=== PATIENT | male | born 1950 | race Caucasian/White ===

== ENCOUNTER 2019-01-07 07:06 | Day surgery (SDC) | payer OTHER ==
[~2019-01-07] VITALS: Ht 167.6 cm; Wt 81.6 kg
[2019-01-07 07:35] VITALS: BP 128/85
[2019-01-07 12:38] VITALS: BP 118/79
== END 2019-01-07 11:50 | disposition home or self-care (01) ==
LOC: GI 07:06 → OR 09:30 → GI 11:50
DX: Z12.11 Encounter for screening for malignant neoplasm of colon (principal); K63.5 Polyp of colon; K57.30 Diverticulosis of large intestine without perforation or abscess without bleeding; Z98.890 Other specified postprocedural states; Z79.82 Long term (current) use of aspirin; Z79.899 Other long term (current) drug therapy; Z86.010 Personal history of colon polyps
CPT/HCPCS: 45378; J1200; J1610; J2250; J2310; J3010; J3490

== ENCOUNTER 2020-04-05 11:13 | Inpatient (IN) | payer OTHER, SELFPAY ==
[~2020-04-05] VITALS: Ht 170.2 cm; Wt 86.2 kg
[2020-04-05 17:59] VITALS: Ht 170.2 cm; Wt 86.2 kg
[2020-04-05 19:55] LABS: BASOPHIL % 0.2 % (0.2-1.5); PLATELET COUNT 190 x10^3mcL (152-348)
[2020-04-05 19:57] LABS: rbc morphology (normal/abnorm) NORMAL (NORMAL)
[2020-04-05 20:15] LABS: CARBON DIOXIDE 25.7 mmol/L (21-32); CHLORIDE SERUM 100 mmol/L (98-107); CREATININE SERUM 1.1 mg/dL (0.7-1.3); GFR1 > 60 mL/min; GLUCOSE SERUM 106 mg/dL (74-106); POTASSIUM SERUM 4.3 mmol/L (3.5-5.1); SODIUM SERUM 134 mmol/L (136-145)
[2020-04-05 20:41] LABS: ALKALINE PHOSPHATASE 62 U/L (46-116); ALT/SGPT 70 U/L (16-63); AST/SGOT 80 U/L (15-37); BILIRUBIN TOTAL 0.6 mg/dL (0.20-1.00)
[2020-04-05 20:55] LABS: ALBUMIN 2.1 g/dL (3.4-5.0); TOTAL PROTEIN, SERUM 5.9 g/dL (6.4-8.2)
[2020-04-05 21:07] LABS: T3 TOTAL 0.81 ng/mL
[2020-04-05 21:10] LABS: C REACTIVE PROTEIN 27.3 mg/dL (<=0.9)
[2020-04-05 21:17] LABS: ERYTHROCYTE SED RATE 68 mm/hr (0-20)
[2020-04-05 23:04] LABS: FREE T4 1.25 ng/dL (0.76-1.46); FREE THYROXINE INDEX 2.8 ug/dL (1.4-4.5); T4(THYROXINE) 7.8 ug/dL (4.7-13.3)
[2020-04-05 23:10] LABS: CK-MB 0.9 ng/mL (0-3.6)
[2020-04-05 23:15] LABS: CHOLESTEROL/HDL RATIO 5.4
[2020-04-06 01:27] LABS: UA SPECIFIC GRAVITY 1.025 (1.005-1.035); microscopic required? YES; urine erythrocyte NEGATIVE (NEGATIVE)
[2020-04-06 08:39] LABS: BASOPHIL % 0.2 % (0.2-1.5); PLATELET COUNT 189 x10^3mcL (152-348); RED CELL DISTRIBUTION WIDTH 13.7 % (12.1-16.2)
[2020-04-06 09:23] LABS: CALCIUM 8.3 mg/dL (8.5-10.1); CARBON DIOXIDE 24.2 mmol/L (21-32); CHLORIDE SERUM 100 mmol/L (98-107); CREATININE SERUM 0.9 mg/dL (0.7-1.3); GFR1 > 60 mL/min; GLUCOSE SERUM 142 mg/dL (74-106); POTASSIUM SERUM 4.1 mmol/L (3.5-5.1); SODIUM SERUM 135 mmol/L (136-145)
[2020-04-06 10:30] LABS: rbc morphology (normal/abnorm) NORMAL (NORMAL)
[2020-04-06 13:34] VITALS: BP 152/77
[2020-04-06 16:27] VITALS: BP 126/80
[2020-04-06 20:55] VITALS: BP 124/84
[2020-04-07 06:27] VITALS: BP 127/88
[2020-04-07 08:17] LABS: BASOPHIL % 0.1 % (0.2-1.5); PLATELET COUNT 233 x10^3mcL (152-348); RED CELL DISTRIBUTION WIDTH 13.2 % (12.1-16.2)
[2020-04-07 08:44] LABS: CALCIUM 8.4 mg/dL (8.5-10.1); CARBON DIOXIDE 26.6 mmol/L (21-32); CHLORIDE SERUM 103 mmol/L (98-107); CREATININE SERUM 0.9 mg/dL (0.7-1.3); GFR1 > 60 mL/min; GLUCOSE SERUM 133 mg/dL (74-106); POTASSIUM SERUM 4.1 mmol/L (3.5-5.1); SODIUM SERUM 137 mmol/L (136-145)
[2020-04-07 09:27] VITALS: BP 114/80
[2020-04-07 12:59] VITALS: BP 142/85
[2020-04-07 16:39] VITALS: BP 134/79
[2020-04-07 21:19] VITALS: BP 121/80
[2020-04-08 06:27] VITALS: BP 131/60
[2020-04-08 08:19] LABS: BASOPHIL % 0.1 % (0.2-1.5); PLATELET COUNT 268 x10^3mcL (152-348); RED CELL DISTRIBUTION WIDTH 13.5 % (12.1-16.2)
[2020-04-08 08:29] LABS: CALCIUM 8.4 mg/dL (8.5-10.1); CARBON DIOXIDE 24.9 mmol/L (21-32); CHLORIDE SERUM 105 mmol/L (98-107); CREATININE SERUM 0.9 mg/dL (0.7-1.3); GFR1 > 60 mL/min; GLUCOSE SERUM 92 mg/dL (74-106); POTASSIUM SERUM 4.2 mmol/L (3.5-5.1); SODIUM SERUM 138 mmol/L (136-145)
[2020-04-08 08:35] VITALS: BP 129/81
[2020-04-08 08:39] LABS: BILIRUBIN DIRECT 0.16 mg/dL (0.0-0.2); BILIRUBIN TOTAL 0.49 mg/dL (0.20-1.00)
[2020-04-08 08:40] LABS: ALBUMIN 2.1 g/dL (3.4-5.0)
[2020-04-08 08:52] LABS: rbc morphology (normal/abnorm) NORMAL (NORMAL)
[2020-04-08 11:56] VITALS: BP 129/74
[2020-04-08 16:41] VITALS: BP 127/79
[2020-04-08 21:54] VITALS: BP 142/79
[2020-04-09 05:48] VITALS: BP 98/65
[2020-04-09 07:36] LABS: CALCIUM 8.7 mg/dL (8.5-10.1); CARBON DIOXIDE 27.2 mmol/L (21-32); CHLORIDE SERUM 100 mmol/L (98-107); CREATININE SERUM 1.1 mg/dL (0.7-1.3); GFR1 > 60 mL/min; GLUCOSE SERUM 82 mg/dL (74-106); POTASSIUM SERUM 3.8 mmol/L (3.5-5.1); SODIUM SERUM 136 mmol/L (136-145)
[2020-04-09 07:44] LABS: BASOPHIL % 0.2 % (0.2-1.5); PLATELET COUNT 259 x10^3mcL (152-348); RED CELL DISTRIBUTION WIDTH 13.6 % (12.1-16.2)
[2020-04-09 07:49] VITALS: BP 119/71
[2020-04-09 11:24] VITALS: BP 119/73
[2020-04-09 13:07] LABS: rbc morphology (normal/abnorm) NORMAL (NORMAL)
[2020-04-09 15:40] LABS: TOTAL PROTEIN, SERUM 6.8 g/dL (6.4-8.2)
[2020-04-09 15:41] LABS: ALBUMIN 2.6 g/dL (3.4-5.0); BILIRUBIN DIRECT 0.25 mg/dL (0.0-0.2); BILIRUBIN TOTAL 0.75 mg/dL (0.20-1.00)
[2020-04-09 15:55] VITALS: BP 119/74
[2020-04-09 20:36] VITALS: BP 141/85
[2020-04-10 05:08] VITALS: BP 129/77
[2020-04-10 09:17] LABS: BILIRUBIN DIRECT 0.27 mg/dL (0.0-0.2); BILIRUBIN TOTAL 0.78 mg/dL (0.20-1.00); TOTAL PROTEIN, SERUM 6.3 g/dL (6.4-8.2)
[2020-04-10 09:18] VITALS: BP 109/75
[2020-04-10 09:29] LABS: ALBUMIN 2.2 g/dL (3.4-5.0)
[2020-04-10 13:42] VITALS: BP 114/70
[2020-04-10 16:58] VITALS: BP 127/80
[2020-04-10 20:36] VITALS: BP 212/65
[2020-04-11 05:25] VITALS: BP 112/73
[2020-04-11 08:01] LABS: ALBUMIN 2.1 g/dL (3.4-5.0); BILIRUBIN DIRECT 0.21 mg/dL (0.0-0.2); BILIRUBIN TOTAL 0.69 mg/dL (0.20-1.00); TOTAL PROTEIN, SERUM 6.4 g/dL (6.4-8.2)
[2020-04-11 08:58] VITALS: BP 106/60
[2020-04-11 12:50] VITALS: BP 111/74
[2020-04-11 17:37] VITALS: BP 122/76
[2020-04-11 20:50] VITALS: BP 110/64
[2020-04-12 04:47] VITALS: BP 107/70
[2020-04-12 08:01] LABS: BASOPHIL % 0.3 % (0.2-1.5); PLATELET COUNT 209 x10^3mcL (152-348); RED CELL DISTRIBUTION WIDTH 13.4 % (12.1-16.2)
[2020-04-12 08:10] LABS: CALCIUM 8.2 mg/dL (8.5-10.1); CARBON DIOXIDE 27.5 mmol/L (21-32); CHLORIDE SERUM 103 mmol/L (98-107); GFR1 > 60 mL/min; GLUCOSE SERUM 97 mg/dL (74-106); POTASSIUM SERUM 4.2 mmol/L (3.5-5.1); SODIUM SERUM 137 mmol/L (136-145)
[2020-04-12 09:15] VITALS: BP 106/58
[2020-04-12 13:07] VITALS: BP 115/70
[2020-04-12 16:13] VITALS: BP 105/65
[2020-04-12 19:50] VITALS: BP 122/80
[2020-04-13 05:17] VITALS: BP 112/73
[2020-04-13 08:51] LABS: BASOPHIL % 0.2 % (0.2-1.5); PLATELET COUNT 208 x10^3mcL (152-348); RED CELL DISTRIBUTION WIDTH 13.4 % (12.1-16.2)
[2020-04-13 09:03] VITALS: BP 104/67
[2020-04-13 09:13] LABS: C REACTIVE PROTEIN 5.2 mg/dL (<=0.9); CALCIUM 8.3 mg/dL (8.5-10.1); CARBON DIOXIDE 26.9 mmol/L (21-32); CHLORIDE SERUM 103 mmol/L (98-107); CREATININE SERUM 0.9 mg/dL (0.7-1.3); GFR1 > 60 mL/min; GLUCOSE SERUM 95 mg/dL (74-106); POTASSIUM SERUM 3.9 mmol/L (3.5-5.1); SODIUM SERUM 137 mmol/L (136-145)
[2020-04-13 11:26] LABS: rbc morphology (normal/abnorm) NORMAL (NORMAL)
[2020-04-13 12:38] VITALS: BP 126/73
[2020-04-13 17:12] VITALS: BP 107/69
[2020-04-13 22:37] VITALS: BP 116/73
[2020-04-14 04:26] VITALS: BP 94/58
[2020-04-14 09:38] VITALS: BP 108/65
[2020-04-14] MEDS ORDERED: ZINC SULFATE220 MG PO (10:46)
[2020-04-14] MEDS ORDERED: MUCINEX600 MG PO (10:46)
[2020-04-14] MEDS ORDERED: VITC PO (10:46)
[2020-04-14] MEDS ORDERED: D-10001 TAB PO (10:46)
[2020-04-14] MEDS ORDERED: VENTOLIN H0.09 MG/A1 INH (10:46)
[2020-04-14] MEDS ORDERED: ELIQUIS2.5 MG PO (10:47)
[2020-04-14] MEDS ORDERED: DECADRON6 MG PO (10:47)
[2020-04-14 13:14] VITALS: BP 108/65
[2020-04-14 13:33] VITALS: BP 113/74
[2020-04-14 14:06] LABS: BASOPHIL % 0.1 % (0.2-1.5); PLATELET COUNT 196 x10^3mcL (152-348); RED CELL DISTRIBUTION WIDTH 13.5 % (12.1-16.2)
[2020-04-14 14:20] LABS: CALCIUM 7.6 mg/dL (8.5-10.1); CARBON DIOXIDE 24.9 mmol/L (21-32); CHLORIDE SERUM 100 mmol/L (98-107); GFR1 > 60 mL/min; GLUCOSE SERUM 112 mg/dL (74-106); POTASSIUM SERUM 3.9 mmol/L (3.5-5.1); SODIUM SERUM 133 mmol/L (136-145)
[2020-04-14 16:58] VITALS: BP 117/73
[2020-04-14 21:58] VITALS: BP 136/89
[2020-04-14 22:44] LABS: rbc morphology (normal/abnorm) NORMAL (NORMAL)
[2020-04-15 05:04] VITALS: BP 97/59
[2020-04-15 10:00] VITALS: BP 117/70
[2020-04-15 10:47] VITALS: BP 117/70
[2020-04-15] MEDS ORDERED: MUCINEX600 MG PO ×2 (10:58→14:08)
[2020-04-15] MEDS ORDERED: VENTOLIN H0.09 MG/A1 INH ×2 (10:58→14:08)
[2020-04-15] MEDS ORDERED: D-10001 TAB PO ×2 (10:58→14:08)
[2020-04-15] MEDS ORDERED: VITC PO ×2 (10:58→14:08)
[2020-04-15] MEDS ORDERED: DECADRON6 MG PO ×2 (10:58→14:08)
[2020-04-15] MEDS ORDERED: ELIQUIS2.5 MG PO ×2 (10:58→14:08)
[2020-04-15] MEDS ORDERED: ZINC SULFATE220 MG PO ×2 (10:58→14:08)
[2020-04-15 12:59] VITALS: BP 111/68
== END 2020-04-15 14:59 | disposition home or self-care (01) | DRG 871 ==
LOC: ED 11:13 → DU 19:28
PROVIDERS: Family Medicine; Specialist; ADMIT Internal Medicine; ATTEND Internal Medicine
PROC: XW033E5 Introduction of Remdesivir Anti-infective into Peripheral Vein, Percutaneous Approach, New Technology Group 5 (ICD-10-PCS; 2020-04-07)
PROC: XW13325 Transfusion of Convalescent Plasma (Nonautologous) into Peripheral Vein, Percutaneous Approach, New Technology Group 5 (ICD-10-PCS; principal; 2020-04-08)
DX: A41.89 Other specified sepsis (principal); U07.1 COVID-19; J96.01 Acute respiratory failure with hypoxia; E43 Unspecified severe protein-calorie malnutrition; J12.82 Pneumonia due to coronavirus disease 2019; E87.1 Hypo-osmolality and hyponatremia; Z68.29 Body mass index [BMI] 29.0-29.9, adult; R73.03 Prediabetes
CPT/HCPCS: 36600; 84439; 85378; G0378; J0456; J0696; J1100; J1650; J3535; J7030; J7050; Q9967; U0003